=== PATIENT | female | born 1985 | race Caucasian/White ===

== ENCOUNTER 2019-07-14 17:26 | Emergency (ER) | payer BC ==
[~2019-07-14] VITALS: Ht 157.5 cm; Wt 81.8 kg
[~2019-07-14 17:26] MED LIST: LORA0.5T PO; QUET25TA33 PO; RISP1TAB3 PO; TOPI100T11 PO; TOPI50TA13 PO
[2019-07-14 17:36] VITALS: Ht 157.5 cm; Wt 81.8 kg
[2019-07-14] MEDS ORDERED: CHARCOAL/SORBITOL 50 GM/240 ML BTL PO ONE (18:00)
[2019-07-14] MEDS ORDERED: SOD CHLORIDE 0.9% 1,000 ML IV ONE (20:30)
[2019-07-15 06:47] VITALS: BP 128/72; PULSE 82; RESP 18
== END 2019-07-15 06:51 | disposition home or self-care (01) ==
LOC: E/R 17:26
DX: T43.592A Poisoning by other antipsychotics and neuroleptics, intentional self-harm, initial encounter (principal); T42.6X2A Poisoning by other antiepileptic and sedative-hypnotic drugs, intentional self-harm, initial encounter; F31.9 Bipolar disorder, unspecified; X58.XXXA Exposure to other specified factors, initial encounter; Y92.9 Unspecified place or not applicable
CPT/HCPCS: 36415; 80053; 80307; 81001; 82962; 84702; 85025; 93005; 96360; 96361; 99284; J7030; Z7610